=== PATIENT | male | born 1955 | race Caucasian/White ===

== ENCOUNTER → 2017-05-02 | Day surgery (SDC) | payer OTHER ==
[~2017-05-02] MED LIST: Lactated Ringers 1,000 ML IV SCH; Propofol 200 MG/20 ML SDV IV ONE
[2017-05-02 10:06] VITALS: BP 143/94
--- NOTE | 2017-05-02 11:31 | OR ---
DATE OF OPERATION: 05/02/2017 PREOPERATIVE DIAGNOSIS: HISTORY OF POLYPS. POSTOPERATIVE DIAGNOSIS: HISTORY OF POLYPS. SURGEON: Jesse Espinoza MD PROCEDURE: FULL-LENGTH COLONOSCOPY WITH POLYP REMOVAL X2. ANESTHESIA: [employer] due to atrial fibrillation, sleep apnea and history of AAA. COMPLICATIONS: None. SPECIMEN: Tubular adenoma x2, see below. FINDINGS: 1. Full-length colonoscopy. 2. Monroe diverticulosis, moderate to severe. 3. Tubular adenoma x2. RECOMMENDATIONS: Followup colonoscopy in 2 years. INDICATIONS: The patient had a recent colonoscopy last year that required surgical removal of couple of large villous lesions in his right colon and he did have a large tubulovillous lesion in his rectum and was recommended he have a 1-year followup scope. DESCRIPTION OF PROCEDURE: The patient was prepped and draped, placed in the left lateral decubitus position. A lubricated Olympus colonoscope was inserted and with relative ease advanced to the cecum. The patient does have a very torturous colon, but we were able to visualize the ileocecal valve, cecal pouch had a lot of heavy stool and was hard to visualize that area and we could not suction it. Upon withdrawal, the cecal area and ascending colon appeared benign. Right at the hepatic flexure, the patient had a small flat villous adenoma removed in its entirety with 2 cold forceps biopsies without complication. The rest of the transverse colon was unremarkable. The patient does have monroe diverticular disease extending into the right colon, most severe in the sigmoid as expected without any inflammatory changes. In the mid sigmoid colon around 45 cm, the patient did have another stalked tubular adenoma removed with a small snare and suctioned into polyp trap #1 without complication. No further polyps were seen. The rectal vault appeared unremarkable. Retroflexion of scope in the rectum showed no perianal lesions. There were no signs of polyp recurrence in the rectal vault. Air was suctioned. Scope was removed without complication. MELISSA/PUNEET /[id number]
== END ==
LOC: CC.SDS 07:40
PROVIDERS: ATTEND Family Medicine
DX: Z12.11 Encounter for screening for malignant neoplasm of colon (principal); D12.5 Benign neoplasm of sigmoid colon; D12.3 Benign neoplasm of transverse colon; K57.90 Diverticulosis of intestine, part unspecified, without perforation or abscess without bleeding; K56.2 Volvulus; I10 Essential (primary) hypertension; I48.91 Unspecified atrial fibrillation; G47.30 Sleep apnea, unspecified; M19.90 Unspecified osteoarthritis, unspecified site; E78.00 Pure hypercholesterolemia, unspecified; E55.9 Vitamin D deficiency, unspecified; Z79.82 Long term (current) use of aspirin; Z79.899 Other long term (current) drug therapy; Z86.010 Personal history of colon polyps; Z90.49 Acquired absence of other specified parts of digestive tract; Z98.890 Other specified postprocedural states
CPT/HCPCS: 45380; 45385; J2704; J7120